=== PATIENT | female | born 1940 | race Caucasian/White ===

== ENCOUNTER 2018-05-21 07:47 | Day surgery (SDC) | payer MEDICARE ==
[2018-05-21] MEDS: PHENYLEPHRINE 2.5% OPHTH SOL 2ML OD (08:42)
[2018-05-21] MEDS: TROPICAMIDE 1% OPHTH SOLN 2ML OD (08:42)
[2018-05-21] MEDS: OFLOXACIN 0.3 % (OCUFLOX) OPTH SOL 5ML OD (08:42)
[2018-05-21] MEDS: PROPARACAINE 0.5% OPHTH SOL 15ML OD (08:43)
[2018-05-21] MEDS ORDERED: fentaNYL 100 MCG/2 ML INJECTION (J3010) As Ordered (09:02)
[2018-05-21] MEDS ORDERED: MIDAZOLAM INJ 2 MG/2 ML VIAL (J2250) As Ordered (09:02)
[2018-05-21] MEDS: POVIDONE-IODINE 5% OPHTH PREP SOL 30ML As Ordered (09:35)
[2018-05-21] MEDS: CEFUROXIME 1MG/0.1ML INTRACAMERAL INJ As Ordered (09:35)
[2018-05-21] MEDS: LIDOCAINE 0.75%/EPINEPHRINE 0.025% IN BSS 1ML SYR INTRACAMERAL (OR ONLY) As Ordered (09:35)
[2018-05-21] MEDS: BALANCED SALT IRRIGATION SOLUTION 500ML BAG (FOR OR EYE MACHINE) As Ordered (09:35)
[2018-05-21] MEDS: DUOVISC (0.50ML VISCOAT/0.55ML PROVISC) OPHTH KIT As Ordered (09:35)
== END 2018-05-21 10:33 | disposition home or self-care (01) ==
LOC: M SDC 07:47
DX: H25.11 Age-related nuclear cataract, right eye (principal); J43.1 Panlobular emphysema; H40.9 Unspecified glaucoma; I12.9 Hypertensive chronic kidney disease with stage 1 through stage 4 chronic kidney disease, or unspecified chronic kidney disease; R73.03 Prediabetes; M12.9 Arthropathy, unspecified; I25.10 Atherosclerotic heart disease of native coronary artery without angina pectoris; E78.00 Pure hypercholesterolemia, unspecified; K21.9 Gastro-esophageal reflux disease without esophagitis; R29.898 Other symptoms and signs involving the musculoskeletal system; M81.0 Age-related osteoporosis without current pathological fracture; F41.9 Anxiety disorder, unspecified; K44.9 Diaphragmatic hernia without obstruction or gangrene; R32 Unspecified urinary incontinence; R80.9 Proteinuria, unspecified; E55.9 Vitamin D deficiency, unspecified; I50.32 Chronic diastolic (congestive) heart failure; N18.3 Chronic kidney disease, stage 3 (moderate); G56.23 Lesion of ulnar nerve, bilateral upper limbs; E66.9 Obesity, unspecified; Z88.0 Allergy status to penicillin; Z88.5 Allergy status to narcotic agent; Z79.899 Other long term (current) drug therapy; Z79.82 Long term (current) use of aspirin; Z87.81 Personal history of (healed) traumatic fracture; Z87.891 Personal history of nicotine dependence
CPT/HCPCS: 66984

== ENCOUNTER 2018-05-28 10:18 | Day surgery (SDC) | payer MEDICARE ==
[~2018-05-28 10:18] MED LIST: ACETAMINOPHEN 325 MG TAB PO; MIDAZOLAM INJ 2 MG/2 ML VIAL (J2250) As Ordered; fentaNYL 100 MCG/2 ML INJECTION (J3010) As Ordered
[2018-05-28] MEDS: PHENYLEPHRINE 2.5% OPHTH SOL 2ML OS (11:30)
[2018-05-28] MEDS: PROPARACAINE 0.5% OPHTH SOL 15ML OS (11:30)
[2018-05-28] MEDS: TROPICAMIDE 1% OPHTH SOLN 2ML OS (11:30)
[2018-05-28] MEDS: OFLOXACIN 0.3 % (OCUFLOX) OPTH SOL 5ML OS (11:30)
[2018-05-28] MEDS: DUOVISC (0.50ML VISCOAT/0.55ML PROVISC) OPHTH KIT As Ordered ×2 (13:18)
[2018-05-28] MEDS: ACETYLCHOLINE OPHTH SOLN 1% 2ML (MIOCHOL-E) As Ordered (13:18)
[2018-05-28] MEDS: CEFUROXIME 1MG/0.1ML INTRACAMERAL INJ As Ordered (13:18)
[2018-05-28] MEDS: LIDOCAINE 0.75%/EPINEPHRINE 0.025% IN BSS 1ML SYR INTRACAMERAL (OR ONLY) As Ordered (13:18)
[2018-05-28] MEDS ORDERED: ONDANSETRON 4MG/2ML VIAL (J2405) IV (14:15)
[2018-05-28] MEDS ORDERED: TRIMETHOBENZAMIDE 300 MG CAP PO (14:15)
[2018-05-28] MEDS ORDERED: ACETAMINOPHEN TAB 650MG DOSE (2X325MG) PO (14:15)
== END 2018-05-28 14:25 | disposition home or self-care (01) ==
LOC: M SDC 10:18
DX: H25.12 Age-related nuclear cataract, left eye (principal); H40.812 Glaucoma with increased episcleral venous pressure, left eye; I25.10 Atherosclerotic heart disease of native coronary artery without angina pectoris; I10 Essential (primary) hypertension; J44.9 Chronic obstructive pulmonary disease, unspecified; K21.9 Gastro-esophageal reflux disease without esophagitis; F41.9 Anxiety disorder, unspecified; Z79.82 Long term (current) use of aspirin; Z79.899 Other long term (current) drug therapy
CPT/HCPCS: 66984

== ENCOUNTER 2019-02-16 15:12 | Inpatient (IN) | payer MEDICARE ==
[~2019-02-16] VITALS: Ht 157.5 cm; Wt 73.0 kg
[~2019-02-16 15:12] MED LIST changes: +ACET1TAB55 PO; -ACETAMINOPHEN 325 MG TAB PO; +ADV250INH INH; +ALBU83IN INH; +ALIVTAB3 PO; +ASPI81TA26 PO; +ATOR40TA75 PO; +BIMA01SOL OU; +BROV15NE INH; +BUDE0.5S6 INH; +CARD120C3 PO; +COLA100C5 PO; +DRIS50003 PO; +DULC10SU2 PR; +ESCI10TA2 PO; +FERR325T3 PO; +FOSA70TA PO; +FURO40TA2 PO; +GABA-1171 PO; +GLIM1TAB PO; +INCR1INH INH; +IPRA2IN INH; +KLOR10TA76 PO; +LISI10TA4 PO; +META0.52 PO; -MIDAZOLAM INJ 2 MG/2 ML VIAL (J2250) As Ordered; +MILK120011 PO; +PEPC1TAB5 PO; +PRED10TA2 PO; -fentaNYL 100 MCG/2 ML INJECTION (J3010) As Ordered
[2019-02-16 16:05] LABS: BASO % 0.3 % (0.0-1.0); EOS # 0.1 10^3/uL (0.0-0.50); EOS % 0.6 % (0.0-3.0); HEMATOCRIT 39.4 % (36.0-47.0); HEMOGLOBIN 11.4 g/dl (12.0-15.5); LYMPH # 1.1 10^3/uL (1.5-4.5); LYMPH % 10.5 % (24.0-44.0); MEAN CORPUSCULAR HEMOGLOBIN 29.7 pg (27.0-33.0); MEAN CORPUSCULAR HGB CONC 28.9 g/dl (32.0-36.5); MEAN CORPUSCULAR VOLUME 102.6 fl (80.0-96.0); MONO # 0.6 10^3/uL (0.0-0.8); MONO % 5.9 % (0.0-5.0); NEUTROPHILS # 8.2 10^3/uL (1.8-7.7); NEUTROPHILS % 82.3 % (36.0-66.0); PLATELET COUNT, AUTOMATED 209 10^3/uL (150-450); RED BLOOD COUNT 3.84 10^6/uL (4.00-5.40)
--- NOTE | 2019-02-16 16:12 | REP ---
Chest two views HISTORY: Cough Comparison: 02/11/2018 Linear density is present in the right lower lobe consistent with scarring. A calcified granuloma is present in the left lower lobe. The cardiac silhouette is enlarged. The heart is normal in size. The pulmonary vasculature is normal in appearance. The bony structure is osteopenic. IMPRESSION: 1. Right lower lobe scarring. 2. Cardiomegaly. Electronically Signed by Geovani Malin MD 02/16/2019 04:04 P
[2019-02-16] MEDS ORDERED: FUROSEMIDE 40 MG/4 ML VIAL (J1940) IV ONE (16:15)
[2019-02-16 16:16] LABS: INR 0.84; PROTHROMBIN TIME 11.6 SECONDS (12.1-14.4)
[2019-02-16] MEDS: IPRATROPIUM 0.5MG/ALBUTEROL 2.5MG INH SOL UD 3ML (DUONEB)(J7620) NEB SCH ×4 (16:16→20:11)
[2019-02-16 16:29] LABS: ABG BASE EXCESS 17.3 (-2.0-2.0); ABG HCO3 45.8 MEQ/L (22.0-26.0); ABG O2 SATURATION 89.3 % (95.0-99.0); ABG PARTIAL PRESSURE O2 54.3 mmHg (75.0-100.0); ABG STANDARD HCO3 41.1 MEQ/L (22.0-26.0); ABG TOTAL CO2 48.2 MEQ/L (23.0-31.0)
[2019-02-16 16:36] LABS: ABG PARTIAL PRESSURE CO2 77.4 mmHg (35.0-45.0)
[2019-02-16 16:51] LABS: ALBUMIN 3.6 GM/DL (3.2-5.2); ALT/SGPT 24 U/L (12-78); BILIRUBIN,DIRECT 0.1 MG/DL (0.0-0.2); BILIRUBIN,TOTAL 0.4 MG/DL (0.2-1.0); BLOOD UREA NITROGEN 25 MG/DL (7-18); CALCIUM LEVEL 8.8 MG/DL (8.8-10.2); CARBON DIOXIDE LEVEL 49 MEQ/L (21-32); CHLORIDE LEVEL 93 MEQ/L (98-107); CPK CREATINE PHOSPHOKINASE 51 U/L (26-192); GLOMERULAR FILTRATION RATE 57.1 (>39); GLUCOSE, FASTING 78 MG/DL (70-100); MB/CK RELATIVE INDEX 6.08 (< OR =4); NT-PRO BNP 3198 PG/ML (<450); POTASSIUM SERUM 4.1 MEQ/L (3.5-5.1); SODIUM LEVEL 141 MEQ/L (136-145); THYROID STIMULATING HORMONE 0.661 uIU/ML (0.358-3.740); TOTAL PROTEIN 6.5 GM/DL (6.4-8.2); TROPONIN I 0.03 NG/ML (< 0.10)
[2019-02-16] MEDS ORDERED: CARD120C3 PO (17:38)
[2019-02-16] MEDS ORDERED: ACET650T15 PO (17:38)
[2019-02-16] MEDS ORDERED: TREL1AER INH (17:39)
[2019-02-16] MEDS ORDERED: ALBUTEROL SULFATE 2.5 MG/0.5 ML INH NEB SOLN NEB PRN (18:45)
--- NOTE | 2019-02-16 19:19 | HPEPDOC ---
General Date of Admission Feb 16, 2019 at 17:48 Chief Complaint The patient is a 78-year-old female admitted with a reason for visit of Acute R espiratory Failure W Hypoxia And Hypercapni. Source: Patient, Family Exam Limitations: Clinical conditions, Other (Patient on BiPAP) History of Present Illness Patient is a 78-year-old female who presents to the hospital with complains of increasing shortness of breath as well as hypoxia. The patient was apparently admitted to [facility] a couple of weeks ago, treated with antibiotics, Lasix and steroids discharged home on Lasix and prednisone. The patient reports she previously finished the antibiotic treatment. At home, the patient was having problems with lower extremity edema. She was seen by her primary care provider on Friday last week and the dose of her furosemide was increased to 80 mg daily. She finished the higher dose of furosemide yesterday. Over the the weekend, the family had noticed that the patient was having problems with shortness of breath, difficulty ambulating, increasing confusion/hallucination. They had advised the patient to come to the ER, however, apparently, the patient refused the same. In addition, it seems the patient had also been started on Flexeril for back spasmsthe patient had been advised to take half to 1 tablet daily as needed. Family reports that the patient took 7 tablets over the weekend. Also, over the weekend, they had noticed that the patient's O2 saturations were as low as in the 40s. The report that they had increased her oxygen from 4 L to 8 L/m. When seen by primary care provider today, the patient was again noted to be hypoxic. Given concerns regarding respirator failure, she was advised to come to the ER. In the ER, she was noticed to be saturating 60% on arrival. She was treated with 40 g IV Lasix as well as Neb treatment and was placed on BiPAP. ABG showed findings consistent with acute on chronic hypoxemic hypercapnic respiratory failure. Admission was requested for further management. The patient denies any associated chest pain with the shortness of breath. She reports she eats a ham sandwich daily. Does report associated lower except the swelling. Slight cough. No associated fevers/chills or sweats. No nausea or vomiting. Tolerating oral intake. Usually uses a walker to ambulate. Denies any new joint pain or skin rashes. Home Medications Scheduled Alendronate Sodium (Fosamax) 70 Mg Tab, 70 MG PO QWEEK, (Reported) SATURDAYS Aspirin (Aspirin EC) 81 Mg Tab, 81 MG PO DAILY, (Reported) Atorvastatin Calcium (Atorvastatin Calcium) 40 Mg Tab, 40 MG PO QHS, (Reported) Diltiazem Hcl (Cardizem Cd) 120 Mg Cap.er.24h, 120 MG PO DAILY, (Reported) Ergocalciferol (Vitamin D2) (Drisdol) 50,000 Unit Cap, 50,000 UNIT PO Q2WK, (Reported) TAKES EVERY OTHER FRIDAY Ferrous Sulfate (Ferrous Sulfate) 325 Mg Tab, 325 MG PO DAILY, (Reported) Fluticasone/Umeclidin/Vilanter (Trelegy Ellipta 100-62.5-25) 1 Each Blst.w.dev, 1 PUFF INH DAILY, (Reported) Furosemide (Furosemide) 40 Mg Tab, 60 MG PO DAILY, (Reported) Lisinopril (Lisinopril) 10 Mg Tab, 10 MG PO DAILY, (Reported) Potassium Chloride (Klor-Con M10) 10 Meq Tabcr, 10 MEQ PO DAILY, (Reported) Scheduled PRN Acetaminophen (Acetaminophen ER) 650 Mg Tablet.er, 650 MG PO Q8H PRN for PAIN, (Reported) Albuterol Sulf (Albuterol Sulfate) 2.5 Mg/3 Ml Nebu, 2.5 MG INH Q4H PRN for SHORTNESS OF BREATH, (Reported) Allergies Coded Allergies: No Known Allergies (Unverified , 05/21/18) Past Medical History Medical History Diastolic congestive heart failure with ejection fraction 60% on echocardiogram from 01/19/18, osteoporosis, chronic hypoxic and hypercarbic respiratory failure on 4 L/m home oxygen secondary to GOLD stage IV emphysema/end-stage COPD, hypertension, depression, left eye cataract and glaucoma, left elbow fracture, previous cardiac catheterization, left pneumothorax in the past, moderate palmar hypertension, vitamin D deficiency, obesity, hypercholesterolemia, chronic kidney disease stage III Surgical History Left eye cataract extraction and glaucoma surgery Family History Sister has atrial fibrillation, mom had COPD and father had [place] Social History Smoked 2 packs per day for 40 years, quit 20 years ago. Denies any alcohol abuse or drug abuse Review of Systems Other systems Negative for 10 systems except as noted under history of present illness Physical Examination General Exam: Positive: Other (awake, alert. On BiPAP. Able to answer questions and follows commands. Cooperative.) Eye Exam: Positive: PERRLA ENT Exam: Positive: Mucous membr. moist/pink Chest Exam: Positive: Other (diminished air entry bilateral lung kennedy. Slight wheeze. No overt crackles.) Heart Exam: Positive: Other (S1, S2 heard, regular rate rhythm. No rubs or gallops. Bilateral lower extremity 1+ pitting edema) Abdomen Exam: Positive: Soft, Other (nontender. No guarding or rigidity.) Extremity Exam: Positive: Edema Skin Exam: Negative: Rash Neuro Exam: Positive: Other (awake, alert, oriented 3. Answering questions appropriately. Moving all 4 extremities.) Psych Exam: Positive: Mental status NL Vital Signs Vital Signs Date Time Temp Pulse Resp B/P (MAP) Pulse Ox O2 Delivery O2 Flow Rate FiO2 02/16/19 17:52 82 14 175/84 (114) NIPPV (BIPAP/CPAP) 98 02/16/19 16:10 4.0 02/16/19 15:13 97.5 88 Laboratory Data Labs 24H Laboratory Tests 2 02/16/19 15:51: Immature Granulocyte % (Auto) 0.4, White Blood Count 10.0, Red Blood Count 3.84L, Hemoglobin 11.4L, Hematocrit 39.4, Mean Corpuscular Volume 102.6H, Mean Corpuscular Hemoglobin 29.7, Mean Corpuscular Hemoglobin Concent 28.9L, Red Cell Distribution Width 14.2, Platelet Count 209, Neutrophils (%) (Auto) 82.3H, Lymphocytes (%) (Auto) 10.5L, Monocytes (%) (Auto) 5.9H, Eosinophils (%) (Auto) 0.6, Basophils (%) (Auto) 0.3, Neutrophils # (Auto) 8.2H, Lymphocytes # (Auto) 1.1L, Monocytes # (Auto) 0.6, Eosinophils # (Auto) 0.1, Basophils # (Auto) 0.0, Nucleated Red Blood Cells % (auto) 0.0, Prothrombin Time 11.6L, Prothromb Time International Ratio 0.84, Anion Gap , Glomerular Filtration Rate 57.1, Calcium Level 8.8, Aspartate Amino Transf (AST/SGOT) 21, Alanine Aminotransferase (ALT/SGPT) 24, Alkaline Phosphatase 53, Total Bilirubin 0.4, Direct Bilirubin 0.1, Total Creatine Kinase 51, Creatine Kinase MB 3.0, Creatine Kinase MB Relative Index 6.08H, Troponin I 0.03, AU-Xgl-R-Type Natriuretic Peptide 3198H, Total Protein 6.5, Albumin 3.6, Albumin/Globulin Ratio 1.24, Thyroid Stimulating Hormone (TSH) 0.661 02/16/19 16:15: Blood Gas Bicarbonate Standard 41.1H, Arterial Blood pH 7.390, Arterial Blood Partial Pressure CO2 77.4*H, Arterial Blood Partial Pressure O2 54.3L, Arterial Blood Total CO2 48.2H, Arterial Blood HCO3 45.8H, Arterial Blood Base Excess 17.3H, Arterial Blood Oxygen Saturation 89.3L CBC/BMP Laboratory Tests 02/16/19 15:51 Red Blood Count 3.84 L, Mean Corpuscular Volume 102.6 H, Mean Corpuscular Hemoglobin 29.7, Mean Corpuscular Hemoglobin Concent 28.9 L, Red Cell Distribution Width 14.2, Neutrophils (%) (Auto) 82.3 H, Lymphocytes (%) (Auto) 10.5 L, Monocytes (%) (Auto) 5.9 H, Eosinophils (%) (Auto) 0.6, Basophils (%) (Auto) 0.3, Neutrophils # (Auto) 8.2 H, Lymphocytes # (Auto) 1.1 L, Monocytes # (Auto) 0.6, Eosinophils # (Auto) 0.1, Basophils # (Auto) 0.0 RAD Interpretation STUDY: CXR (cardiomegaly, right lower lobe scarring) Assessment/Plan Acute on chronic hypoxic hypercapnic respiratory failure: -Suspect secondary to CHF exacerbation as well as component of COPD exacerbation -Diurese with IV Lasix -Bi-Pap -ABG in a.m. -I's and O's, Jason catheter for accurate and critical monitoring of I's and O 's, daily weights, 2 g sodium diet, fluid restriction, echocardiogram, serial troponins -IV Solu-Medrol, duo nebs 4 times a day, when necessary albuterol neb, Pulmicort nebs twice a day -Pulmonary consultcase was discussed with Dr. Mccullough -Echocardiogram Acute and chronic diastolic congestive heart failure: -Management as noted above Acute COPD exacerbation in setting of end-stage/GOLD Stage 4 COPD: -Management as noted above Stage III chronic kidney disease: -Monitor renal function with diuresis Hypertension -Continue lisinopril, patient will be on IV Lasix Weakness: -PT/OT evaluation Back muscle spasms: -Avoid sedating medications -Topical lidocaine patch and scheduled acetaminophen GI/DVT prophylaxis: -PPI, subcutaneous enoxaparin CODE STATUS: -Full code per my discussion with the patient Disposition: -Admit to ICU as an inpatient for further evaluation and management of acute on chronic respiratory failure, acute on chronic CHF exacerbation and COPD exacerbation. Anticipated discharge to home with home health versus [facility] once medically stable Plan / VTE VTE Prophylaxis Ordered?: Yes ANNIE ROSARIO MD Feb 16, 2019 19:05
[2019-02-16 19:30] VITALS: O2SAT 95
[2019-02-16] MEDS: BUDESONIDE 0.5 MG/2 ML INHALATION SUSPENSION INH SCH (20:11)
[2019-02-16] MEDS: methylPREDNISolone INJ 125 MG/2 ML VIAL (J2930) IV SCH (20:15)
[2019-02-16] MEDS: LIDOCAINE 5% (LIDODERM) PATCH TD SCH (20:15)
[2019-02-16] MEDS: **NOTE PATIENT COMMENT** MISC XX SCH (20:32)
[2019-02-16] MEDS: ATORVASTATIN 20 MG TAB PO SCH (21:00)
--- NOTE | 2019-02-16 21:43 | ECGEPIP ---
Stationary ECG Study [facility] - ED Test Date: 2019-02-16 Pat Name: CARMEN CID Department: Room: - Gender: F [employer] Service [employer]: : 1940 Requested By: CRESCENCIO Taylor Order Number: [id number] Reading MD: Lindsey Andre Measurements Intervals [place] Rate: 79 P: 85 VT: 162 QRS: 76 QRSD: 134 T: 29 QT: 344 QTc: 396 Interpretive Statements SINUS RHYTHM WITH OCCASIONAL SUPRAVENTRICULAR PREMATURE COMPLEXES RIGHT BUNDLE BRANCH BLOCK MODERATE T-WAVE ABNORMALITY, CONSIDER LATERAL ISCHEMIA Electronically Signed On 02-16-2019 21:42:56 EDT by Lindsey Andre
[2019-02-16 21:55] LABS: ABG BASE EXCESS 17.5 (-2.0-2.0); ABG HCO3 43.7 MEQ/L (22.0-26.0); ABG O2 SATURATION 95.3 % (95.0-99.0); ABG PARTIAL PRESSURE CO2 59.7 mmHg (35.0-45.0); ABG PARTIAL PRESSURE O2 68.7 mmHg (75.0-100.0); ABG STANDARD HCO3 41.5 MEQ/L (22.0-26.0); ABG TOTAL CO2 45.5 MEQ/L (23.0-31.0); ABG pH (ARTERIAL) 7.482 UNITS (7.350-7.450)
[2019-02-16 22:00] VITALS: BP 141/73
[2019-02-16] MEDS: ACETAMINOPHEN 500 MG TAB PO SCH (23:06)
[2019-02-17] VITALS (11 sets, daily range): BP systolic 132–179; BP diastolic 67–80; O2SAT 93–94
[2019-02-17] MEDS: methylPREDNISolone INJ 125 MG/2 ML VIAL (J2930) IV SCH ×3 (02:00→19:58)
[2019-02-17 03:10] LABS: BASO % 0.1 % (0.0-1.0); HEMATOCRIT 36.1 % (36.0-47.0); HEMOGLOBIN 10.9 g/dl (12.0-15.5); LYMPH # 0.4 10^3/uL (1.5-4.5); LYMPH % 5.9 % (24.0-44.0); MEAN CORPUSCULAR HGB CONC 30.2 g/dl (32.0-36.5); MEAN CORPUSCULAR VOLUME 99.4 fl (80.0-96.0); MONO % 0.4 % (0.0-5.0); NEUTROPHILS % 93.3 % (36.0-66.0); PLATELET COUNT, AUTOMATED 197 10^3/uL (150-450); RED BLOOD COUNT 3.63 10^6/uL (4.00-5.40); WHITE BLOOD COUNT 7.5 10^3/uL (4.0-10.0)
[2019-02-17 03:31] LABS: ALBUMIN 3.3 GM/DL (3.2-5.2); ALT/SGPT 22 U/L (12-78); BILIRUBIN,TOTAL 0.5 MG/DL (0.2-1.0); BLOOD UREA NITROGEN 23 MG/DL (7-18); CALCIUM LEVEL 8.4 MG/DL (8.8-10.2); CARBON DIOXIDE LEVEL 44 MEQ/L (21-32); CHLORIDE LEVEL 93 MEQ/L (98-107); CREATININE FOR GFR 0.93 MG/DL (0.55-1.30); GLOMERULAR FILTRATION RATE > 60.0 (>39); GLUCOSE, FASTING 134 MG/DL (70-100); MAGNESIUM LEVEL 2.2 MG/DL (1.8-2.4); NT-PRO BNP 2289 PG/ML (<450); PHOSPHORUS LEVEL 2.9 MG/DL (2.5-4.9); POTASSIUM SERUM 4.2 MEQ/L (3.5-5.1); SODIUM LEVEL 142 MEQ/L (136-145); TOTAL PROTEIN 6.2 GM/DL (6.4-8.2)
[2019-02-17 05:34] LABS: ABG BASE EXCESS 16.3 (-2.0-2.0); ABG HCO3 43.8 MEQ/L (22.0-26.0); ABG O2 SATURATION 94.6 % (95.0-99.0); ABG STANDARD HCO3 40.1 MEQ/L (22.0-26.0); ABG TOTAL CO2 45.9 MEQ/L (23.0-31.0); ABG pH (ARTERIAL) 7.411 UNITS (7.350-7.450)
[2019-02-17 05:36] LABS: ABG PARTIAL PRESSURE CO2 70.5 mmHg (35.0-45.0)
[2019-02-17] MEDS: ACETAMINOPHEN 500 MG TAB PO SCH ×3 (06:00→18:19)
[2019-02-17] MEDS: BUDESONIDE 0.5 MG/2 ML INHALATION SUSPENSION INH SCH ×2 (07:36→20:07)
[2019-02-17] MEDS: IPRATROPIUM 0.5MG/ALBUTEROL 2.5MG INH SOL UD 3ML (DUONEB)(J7620) NEB SCH ×4 (07:37→20:07)
--- NOTE | 2019-02-17 07:37 | REP ---
Portable chest, 06:38 a.m., single AP semi upright view: Comparison is 01/25/2018. The there is a small zone of discoid atelectasis inferolaterally in the right lung. There is a nodular density in the right upper lobe, unchanged. There is a nodular density in the left lower lobe, unchanged. There is chronic cardiomegaly, unchanged. There is an old fracture of the right humeral head and neck. Electronically Signed by Antoine England MD 02/17/2019 07:29 A
[2019-02-17] MEDS: LISINOPRIL 10 MG TAB PO SCH (08:26)
[2019-02-17] MEDS: POTASSIUM CHLORIDE 10 MEQ SR TABLET PO SCH (08:26)
[2019-02-17] MEDS: FERROUS SULFATE 325MG TAB PO SCH (08:26)
[2019-02-17] MEDS: ASPIRIN 81 MG ENTERIC TAB PO SCH (08:29)
[2019-02-17] MEDS: FUROSEMIDE 40 MG/4 ML VIAL (J1940) IV SCH (08:29)
[2019-02-17] MEDS: LIDOCAINE 5% (LIDODERM) PATCH TD SCH (08:29)
[2019-02-17] MEDS: ENOXAPARIN 40 MG/0.4 ML SYRINGE (J1650) SC SCH (08:31)
[2019-02-17] MEDS ORDERED: PANTOPRAZOLE 40MG INJ (PROTONIX) (C9113) IV SCH (09:00)
--- NOTE | 2019-02-17 09:48 | IPNPDOC ---
Date Seen The patient was seen on 02/17/19. Progress Note SUBJECTIVE: Patient breathing better this morning, she tells me she is not short of breath she tells me that her breathing feels almost back to normal she still has some back pain and muscle spasms with Lidoderm patches are helping her OBJECTIVE PHYSICAL EXAMINATION: VITAL SIGNS: Please see below. GENERAL: Frail elderly woman sitting up in bed wearing a facemask she does not appear to be in any acute distress speaking in complete sentences she is awake alert oriented 3, no respiratory accessory muscle use HEENT: Cranial nerves II through XII are grossly intact difficult to assess for any elevation CVP secondary to body habitus CARDIOVASCULAR: S1-S2 she is not significantly tachycardic at time of my exam. RESPIRATORY: Scattered bibasilar Rales prolonged expiratory phase otherwise fairly good air movement. ABDOMINAL: Obese bowel sounds present abdomen soft and nontender EXTREMITIES: Trace edema bilaterally LABORATORY DATA, IMAGING STUDIES, MICROBIOLOGY: Please see below. Echocardiogram: Ordered. DVT prophylaxis ordered?: Lovenox ASSESSMENT AND PLAN: This is a 78-year-old female with acute on chronic combined hypercarbic hypoxic respiratory failure. PROBLEMS: 1. Acute on chronic combined hypercarbic hypoxic respiratory failure: [place] to be related to decompensation of congestive heart failure as well as an element of COPD exacerbation. She does appear to be significantly improved at this time I suspect to be weaned back to her baseline O2 by suspicion is that this is more likely related to pulmonary edema.Appears to be much improved from yesterday at this time. COntinue with diuresis as well as BP control with lisinopril and diltiazem. In regards to her COPD and her chronic respiratory failure requiring 4 L at her baseline we'll continue with DuoNeb's IV Solu-Medrol Pulmicort. Pulmonary consult was placed yesterday with further recommendations them she does not appear to be requiring BiPAP at this time. No evidence of any active pneumonia or infectious etiology. I'll discontinue her Jason catheter and follow-up her echocardiogram 2. Acute on chronic diastolic congestive heart failure: As outlined above on her I's and O's daily weights continue with diuresis she does appear to be approaching U bulimia but not quite there yet. 3. End-stage COPD: Management as above further admonitions from pulmonary. 4. Back spasms: Does appear doing well with the Lidoderm patch will hold off any muscle relaxants for the time being until her she is close to her baseline so that she was recently started on new medication the name of which she cannot rec all 5. Hypertension: As outlined above continue with diltiazem and lisinopril 6. Chronic kidney disease: Stable monitor while undergoing diuresis DISPOSITION: Pending pulmonary consult, echo, PTOT optimization of her respiratory status long-term prognosis appears to be quite poor to me. VS, I&O, 24H, Fishbone Vital Signs/I&O Vital Signs Date Time Temp Pulse Resp B/P (MAP) Pulse Ox O2 Delivery O2 Flow Rate FiO2 02/17/19 08:28 116 02/17/19 08:26 151/79 02/17/19 07:37 10 02/17/19 04:00 40 02/17/19 04:00 97.3 97 5.0 02/16/19 21:45 NIPPV (BIPAP/CPAP) I&O- Last 24 Hours up to 6 AM 02/17/19 06:00 Intake Total 200 ml Output Total 1200 ml Balance -1000 ml Laboratory Data 24H LABS Laboratory Tests 2 02/16/19 15:51: Immature Granulocyte % (Auto) 0.4, White Blood Count 10.0, Red Blood Count 3.8 4L, Hemoglobin 11.4L, Hematocrit 39.4, Mean Corpuscular Volume 102.6H, Mean Corpuscular Hemoglobin 29.7, Mean Corpuscular Hemoglobin Concent 28.9L, Red Cell Distribution Width 14.2, Platelet Count 209, Neutrophils (%) (Auto) 82.3H, Lymphocytes (%) (Auto) 10.5L, Monocytes (%) (Auto) 5.9H, Eosinophils (%) (Auto) 0.6, Basophils (%) (Auto) 0.3, Neutrophils # (Auto) 8.2H, Lymphocytes # (Auto) 1.1L, Monocytes # (Auto) 0.6, Eosinophils # (Auto) 0.1, Basophils # (Auto) 0.0, Nucleated Red Blood Cells % (auto) 0.0, Prothrombin Time 11.6L, Prothromb Time International Ratio 0.84, Anion Gap , Glomerular Filtration Rate 57.1, Calcium Level 8.8, Aspartate Amino Transf (AST/SGOT) 21, Alanine Aminotransferase (ALT/SGPT) 24, Alkaline Phosphatase 53, Total Bilirubin 0.4, Direct Bilirubin 0.1, Total Creatine Kinase 51, Creatine Kinase MB 3.0, Creatine Kinase MB Relative Index 6.08H, Troponin I 0.03, II-Qqm-Z-Type Natriuretic Peptide 3198H, Total Protein 6.5, Albumin 3.6, Albumin/Globulin Ratio 1.24, Thyroid Stimulating Hormone (TSH) 0.661 02/16/19 16:15: Blood Gas Bicarbonate Standard 41.1H, Arterial Blood pH 7.390, Arterial Blood Partial Pressure CO2 77.4*H, Arterial Blood Partial Pressure O2 54.3L, Arterial Blood Total CO2 48.2H, Arterial Blood HCO3 45.8H, Arterial Blood Base Excess 17.3H, Arterial Blood Oxygen Saturation 89.3L 02/16/19 21:19: Troponin I 0.03 02/16/19 21:48: Blood Gas Bicarbonate Standard 41.5H, Arterial Blood pH 7.482H, Arterial Blood Partial Pressure CO2 59.7H, Arterial Blood Partial Pressure O2 68.7L, Arterial Blood Total CO2 45.5H, Arterial Blood HCO3 43.7H, Arterial Blood Base Excess 17.5H, Arterial Blood Oxygen Saturation 95.3 02/17/19 02:59: Immature Granulocyte % (Auto) 0.3, White Blood Count 7.5, Red Blood Count 3.63L, Hemoglobin 10.9L, Hematocrit 36.1, Mean Corpuscular Volume 99.4H, Mean Corpuscular Hemoglobin 30.0, Mean Corpuscular Hemoglobin Concent 30.2L, Red Cell Distribution Width 14.1, Platelet Count 197, Neutrophils (%) (Auto) 93.3H, Lymphocytes (%) (Auto) 5.9L, Monocytes (%) (Auto) 0.4, Eosinophils (%) (Auto) 0.0, Basophils (%) (Auto) 0.1, Neutrophils # (Auto) 7.0, Lymphocytes # (Auto) 0.4L, Monocytes # (Auto) 0.0, Eosinophils # (Auto) 0.0, Basophils # (Auto) 0.0, Nucleated Red Blood Cells % (auto) 0.0, Anion Gap 5L, Glomerular Filtration Rate > 60.0, Blood Urea Nitrogen 23H, Creatinine 0.93, Sodium Level 142, Potassium Level 4.2, Chloride Level 93L, Carbon Dioxide Level 44H, Calcium Level 8.4L, Phosphorus Level 2.9, Aspartate Amino Transf (AST/SGOT) 19, Alanine Aminotransferase (ALT/SGPT) 22, Alkaline Phosphatase 50, Total Bilirubin 0.5, Total Protein 6.2L, Albumin 3.3, Magnesium Level 2.2, Troponin I 0.03, CR-Hme-S-Type Natriuretic Peptide 2289H, Albumin/Globulin Ratio 1.14 02/17/19 05:10: Blood Gas Bicarbonate Standard 40.1H, Arterial Blood pH 7.411, Arterial Blood Partial Pressure CO2 70.5*H, Arterial Blood Partial Pressure O2 71.0L, Arterial Blood Total CO2 45.9H, Arterial Blood HCO3 43.8H, Arterial Blood Base Excess 16 .3H, Arterial Blood Oxygen Saturation 94.6L CBC/BMP Laboratory Tests 02/16/19 15:51 Red Blood Count 3.84 L, Mean Corpuscular Volume 102.6 H, Mean Corpuscular Hemoglobin 29.7, Mean Corpuscular Hemoglobin Concent 28.9 L, Red Cell Distribution Width 14.2, Neutrophils (%) (Auto) 82.3 H, Lymphocytes (%) (Auto) 10.5 L, Monocytes (%) (Auto) 5.9 H, Eosinophils (%) (Auto) 0.6, Basophils (%) (Auto) 0.3, Neutrophils # (Auto) 8.2 H, Lymphocytes # (Auto) 1.1 L, Monocytes # (Auto) 0.6, Eosinophils # (Auto) 0.1, Basophils # (Auto) 0.0 02/17/19 02:59 Red Blood Count 3.63 L, Mean Corpuscular Volume 99.4 H, Mean Corpuscular Hemoglobin 30.0, Mean Corpuscular Hemoglobin Concent 30.2 L, Red Cell Distribution Width 14.1, Neutrophils (%) (Auto) 93.3 H, Lymphocytes (%) (Auto) 5.9 L, Monocytes (%) (Auto) 0.4, Eosinophils (%) (Auto) 0.0, Basophils (%) (Auto) 0.1, Neutrophils # (Auto) 7.0, Lymphocytes # (Auto) 0.4 L, Monocytes # (Auto) 0.0, Eosinophils # (Auto) 0.0, Basophils # (Auto) 0.0, Calcium Level 8.4 L, Phosphorus Level 2.9, Aspartate Amino Transf (AST/SGOT) 19, Alanine Aminotransferase (ALT/SGPT) 22, Alkaline Phosphatase 50, Total Bilirubin 0.5, Total Protein 6.2 L, Albumin 3.3 SAL DALAL MD Feb 17, 2019 09:48
--- NOTE | 2019-02-17 10:00 | IPNPDOC ---
Subjective Date Seen The patient was seen on 02/17/19. Subjective Chief Complaint/HPI The patient is a 78-year-old female with a history of advanced COPD on 4 L/m, oxygen as well as history of congestive heart failure and dietary noncompliance who presented to the ER after being sent over from her primary care provider's office for concerns regarding hypoxia, shortness of breath, weakness, confusion found to be in acute on chronic hypoxic hypercapnic respiratory failure initially requiring BiPAP therapy. Events since last encounter Overnight, the patient was able to calm off the BiPAP. She is on nasal cannula this morning. She reports her shortness of breath has improved although she is still a little short of breath with activity. Still feels a little weak. Denies any chest pain or coughing. No nausea or vomiting. Denies any dizziness or lightheadedness. No abdominal pain. Had 2 bowel movements this morning. Has a Jason catheter in place and has been draining well. Denies any other overnight complaints. Objective Physical Examination General Exam: Positive: Alert, Cooperative, No Acute Distress Eye Exam: Positive: PERRLA ENT Exam: Positive: Mucous membr. moist/pink Chest Exam: Positive: Diminished; Negative: Rales, Rhonchi, Wheezing Heart Exam: Positive: Tachycardic, Normal S1, Normal S2 Abdomen Exam: Positive: Soft; Negative: Tenderness Extremity Exam: Positive: Edema (1+, 11 improved from yesterday) Skin Exam: Negative: Rash Neuro Exam: Positive: Other (awake, alert, oriented 3 - able to identify her daughter at bedside although she could not tell me the name of the president. Answering questions appropriately. Moving all 4 extremities.) Psych Exam: Positive: Mental status NL RAD Interpretation STUDY: CXR Rad Actions: Report Reviewed, Other Rad Comments: (chest x-ray was personally reviewedright lower lobe atelectasis unchanged from yesterday. No effusion or infiltrates otherwise. Unchanged from yesterday.) Assessment /Plan Assessment Acute on chronic hypoxic hypercapnic respiratory failure: -Suspect secondary to CHF exacerbation as well as component of COPD exacerbation -Ct to diurese with IV Lasix -Off Bi-Pap - now on NC -ABG reviewed -DC Jason catheter - Purewick in stead for accurate I's and O's. Ct daily weights, 2 g sodium diet, fluid restriction. Echocardiogram - pending. Serial troponins were negative -IV Solu-Medrol - decreased to BID, Ct duo nebs 4 times a day, prn albuterol neb, Pulmicort nebs twice a day -Case was discussed with Dr. Mccullough - she will be transferred out of ICU today to med/surg with telemetry Acute and chronic diastolic congestive heart failure: -Management as noted above Acute COPD exacerbation in setting of end-stage/GOLD Stage 4 COPD: -Management as noted above Stage III chronic kidney disease: -Monitor renal function with diuresis- stable as far Hypertension -Continue lisinopril, IV Lasix -Controlled Weakness: -PT/OT evaluation Back muscle spasms: -Avoid sedating medications -Continue Topical lidocaine patch and scheduled acetaminophen GI/DVT prophylaxis: -PPI, subcutaneous enoxaparin Disposition: Transfer to med/surg floor with telemetry. PT/OT evaluation to determine eventual disposition. Anticipate possible discharge over the next 48-72 hours. Plan/VTE VTE Prophylaxis Ordered?: Yes VS, I&O, 24H, Fishbone Vital Signs/I&O Vital Signs Date Time Temp Pulse Resp B/P (MAP) Pulse Ox O2 Delivery O2 Flow Rate FiO2 02/17/19 08:28 116 02/17/19 08:26 151/79 02/17/19 07:37 10 02/17/19 04:00 40 02/17/19 04:00 97.3 97 5.0 02/16/19 21:45 NIPPV (BIPAP/CPAP) I&O- Last 24 Hours up to 6 AM 02/17/19 06:00 Intake Total 200 ml Output Total 1200 ml Balance -1000 ml Laboratory Data 24H LABS Laboratory Tests 2 02/16/19 15:51: Immature Granulocyte % (Auto) 0.4, White Blood Count 10.0, Red Blood Count 3.84L, Hemoglobin 11.4L, Hematocrit 39.4, Mean Corpuscular Volume 102.6H, Mean Corpuscular Hemoglobin 29.7, Mean Corpuscular Hemoglobin Concent 28.9L, Red Cell Distribution Width 14.2, Platelet Count 209, Neutrophils (%) (Auto) 82.3H, Lymphocytes (%) (Auto) 10.5L, Monocytes (%) (Auto) 5.9H, Eosinophils (%) (Auto) 0.6, Basophils (%) (Auto) 0.3, Neutrophils # (Auto) 8.2H, Lymphocytes # (Auto) 1.1L, Monocytes # (Auto) 0.6, Eosinophils # (Auto) 0.1, Basophils # (Auto) 0.0, Nucleated Red Blood Cells % (auto) 0.0, Prothrombin Time 11.6L, Prothromb Time International Ratio 0.84, Anion Gap , Glomerular Filtration Rate 57.1, Calcium Level 8.8, Aspartate Amino Transf (AST/SGOT) 21, Alanine Aminotransferase (ALT/SGPT) 24, Alkaline Phosphatase 53, Total Bilirubin 0.4, Direct Bilirubin 0.1, Total Creatine Kinase 51, Creatine Kinase MB 3.0, Creatine Kinase MB Relative Index 6.08H, Troponin I 0.03, CG-Ade-U-Type Natriuretic Peptide 3198H, Total Protein 6.5, Albumin 3.6, Albumin/Globulin Ratio 1.24, Thyroid Stimulating Hormone (TSH) 0.661 02/16/19 16:15: Blood Gas Bicarbonate Standard 41.1H, Arterial Blood pH 7.390, Arterial Blood Partial Pressure CO2 77.4*H, Arterial Blood Partial Pressure O2 54.3L, Arterial Blood Total CO2 48.2H, Arterial Blood HCO3 45.8H, Arterial Blood Base Excess 17.3H, Arterial Blood Oxygen Saturation 89.3L 02/16/19 21:19: Troponin I 0.03 02/16/19 21:48: Blood Gas Bicarbonate Standard 41.5H, Arterial Blood pH 7.482H, Arterial Blood Partial Pressure CO2 59.7H, Arterial Blood Partial Pressure O2 68.7L, Arterial Blood Total CO2 45.5H, Arterial Blood HCO3 43.7H, Arterial Blood Base Excess 17.5H, Arterial Blood Oxygen Saturation 95.3 02/17/19 02:59: Immature Granulocyte % (Auto) 0.3, White Blood Count 7.5, Red Blood Count 3.63L, Hemoglobin 10.9L, Hematocrit 36.1, Mean Corpuscular Volume 99.4H, Mean Corpuscu lar Hemoglobin 30.0, Mean Corpuscular Hemoglobin Concent 30.2L, Red Cell Distribution Width 14.1, Platelet Count 197, Neutrophils (%) (Auto) 93.3H, Lymphocytes (%) (Auto) 5.9L, Monocytes (%) (Auto) 0.4, Eosinophils (%) (Auto) 0.0, Basophils (%) (Auto) 0.1, Neutrophils # (Auto) 7.0, Lymphocytes # (Auto) 0.4L, Monocytes # (Auto) 0.0, Eosinophils # (Auto) 0.0, Basophils # (Auto) 0.0, Nucleated Red Blood Cells % (auto) 0.0, Anion Gap 5L, Glomerular Filtration Rate > 60.0, Blood Urea Nitrogen 23H, Creatinine 0.93, Sodium Level 142, Potassium Level 4.2, Chloride Level 93L, Carbon Dioxide Level 44H, Calcium Level 8.4L, Phosphorus Level 2.9, Aspartate Amino Transf (AST/SGOT) 19, Alanine Aminotransfe rase (ALT/SGPT) 22, Alkaline Phosphatase 50, Total Bilirubin 0.5, Total Protein 6.2L, Albumin 3.3, Magnesium Level 2.2, Troponin I 0.03, LN-Kvf-[id number]-Type Natriuretic Peptide 2289H, Albumin/Globulin Ratio 1.14 02/17/19 05:10: Blood Gas Bicarbonate Standard 40.1H, Arterial Blood pH 7.411, Arterial Blood Partial Pressure CO2 70.5*H, Arterial Blood Partial Pressure O2 71.0L, Arterial Blood Total CO2 45.9H, Arterial Blood HCO3 43.8H, Arterial Blood Base Excess 16.3H, Arterial Blood Oxygen Saturation 94.6L CBC/BMP Laboratory Tests 02/16/19 15:51 Red Blood Count 3.84 L, Mean Corpuscular Volume 102.6 H, Mean Corpuscular Hemoglobin 29.7, Mean Corpuscular Hemoglobin Concent 28.9 L, Red Cell Distribution Width 14.2, Neutrophils (%) (Auto) 82.3 H, Lymphocytes (%) (Auto) 10.5 L, Monocytes (%) (Auto) 5.9 H, Eosinophils (%) (Auto) 0.6, Basophils (%) (Auto) 0.3, Neutrophils # (Auto) 8.2 H, Lymphocytes # (Auto) 1.1 L, Monocytes # (Auto) 0.6, Eosinophils # (Auto) 0.1, Basophils # (Auto) 0.0 02/17/19 02:59 Red Blood Count 3.63 L, Mean Corpuscular Volume 99.4 H, Mean Corpuscular Hemoglobin 30.0, Mean Corpuscular Hemoglobin Concent 30.2 L, Red Cell Distribution Width 14.1, Neutrophils (%) (Auto) 93.3 H, Lymphocytes (%) (Auto) 5.9 L, Monocytes (%) (Auto) 0.4, Eosinophils (%) (Auto) 0.0, Basophils (%) (Auto) 0.1, Neutrophils # (Auto) 7.0, Lymphocytes # (Auto) 0.4 L, Monocytes # (Auto) 0.0, Eosinophils # (Auto) 0.0, Basophils # (Auto) 0.0, Calcium Level 8.4 L, Phosphorus Level 2.9, Aspartate Amino Transf (AST/SGOT) 19, Alanine Aminotra nsferase (ALT/SGPT) 22, Alkaline Phosphatase 50, Total Bilirubin 0.5, Total Protein 6.2 L, Albumin 3.3 ANNIE ROSARIO MD Feb 17, 2019 10:00
[2019-02-17 15:01] LABS: ABG BASE EXCESS 16.4 (-2.0-2.0); ABG HCO3 42.3 MEQ/L (22.0-26.0); ABG PARTIAL PRESSURE CO2 57.3 mmHg (35.0-45.0); ABG TOTAL CO2 44.1 MEQ/L (23.0-31.0); ABG pH (ARTERIAL) 7.486 UNITS (7.350-7.450)
[2019-02-17 15:06] LABS: ABG PARTIAL PRESSURE O2 45.8 mmHg (75.0-100.0)
[2019-02-17 17:54] LABS: ABG BASE EXCESS 21.1 (-2.0-2.0); ABG HCO3 49.3 MEQ/L (22.0-26.0); ABG O2 SATURATION 94.8 % (95.0-99.0); ABG PARTIAL PRESSURE O2 71.1 mmHg (75.0-100.0); ABG STANDARD HCO3 45.5 MEQ/L (22.0-26.0); ABG TOTAL CO2 51.5 MEQ/L (23.0-31.0); ABG pH (ARTERIAL) 7.437 UNITS (7.350-7.450)
[2019-02-17 17:55] LABS: ABG PARTIAL PRESSURE CO2 74.7 mmHg (35.0-45.0)
[2019-02-17] MEDS: ATORVASTATIN 20 MG TAB PO SCH (19:58)
[2019-02-17] MEDS: **NOTE PATIENT COMMENT** MISC XX SCH (21:00)
[2019-02-18] VITALS (17 sets, daily range): BP systolic 130–170; BP diastolic 61–104; O2SAT 93
[2019-02-18] MEDS: ACETAMINOPHEN 500 MG TAB PO SCH
[2019-02-18 05:07] LABS: HEMATOCRIT 35.3 % (36.0-47.0); LYMPH # 0.6 10^3/uL (1.5-4.5); LYMPH % 6.7 % (24.0-44.0); MEAN CORPUSCULAR HGB CONC 31.2 g/dl (32.0-36.5); MEAN CORPUSCULAR VOLUME 96.2 fl (80.0-96.0); MONO # 0.3 10^3/uL (0.0-0.8); MONO % 3.6 % (0.0-5.0); NEUTROPHILS # 8.5 10^3/uL (1.8-7.7); NEUTROPHILS % 89.4 % (36.0-66.0); PLATELET COUNT, AUTOMATED 239 10^3/uL (150-450); RED BLOOD COUNT 3.67 10^6/uL (4.00-5.40); WHITE BLOOD COUNT 9.6 10^3/uL (4.0-10.0)
[2019-02-18 05:26] LABS: ABG BASE EXCESS 15.6 (-2.0-2.0); ABG HCO3 42.3 MEQ/L (22.0-26.0); ABG O2 SATURATION 92.9 % (95.0-99.0); ABG PARTIAL PRESSURE O2 67.5 mmHg (75.0-100.0); ABG STANDARD HCO3 39.4 MEQ/L (22.0-26.0); ABG TOTAL CO2 44.2 MEQ/L (23.0-31.0); ABG pH (ARTERIAL) 7.446 UNITS (7.350-7.450)
[2019-02-18 05:28] LABS: ABG PARTIAL PRESSURE CO2 62.8 mmHg (35.0-45.0)
[2019-02-18 05:44] LABS: CALCIUM LEVEL 8.9 MG/DL (8.8-10.2); CREATININE FOR GFR 1.07 MG/DL (0.55-1.30); GLOMERULAR FILTRATION RATE 52.8 (>39); MAGNESIUM LEVEL 2.5 MG/DL (1.8-2.4); PHOSPHORUS LEVEL 2.7 MG/DL (2.5-4.9); POTASSIUM SERUM 3.8 MEQ/L (3.5-5.1)
[2019-02-18] MEDS: IPRATROPIUM 0.5MG/ALBUTEROL 2.5MG INH SOL UD 3ML (DUONEB)(J7620) NEB SCH ×4 (07:25→19:37)
[2019-02-18] MEDS: BUDESONIDE 0.5 MG/2 ML INHALATION SUSPENSION INH SCH ×2 (07:25→19:37)
--- NOTE | 2019-02-18 08:13 | REPVR ---
EXAM: CT Head Without Contrast EXAM DATE/TIME: 02/18/2019 6:35 AM CLINICAL HISTORY: 78 years old, female; Signs and symptoms; Other: Increased confusion; Additional info: Change in condition /increased confusion TECHNIQUE: Imaging protocol: Axial computed tomography images of the head/brain without contrast. Radiation optimization: All CT scans at this facility use at least one of these dose optimization techniques: automated exposure control; mA and/or kV adjustment per patient size (includes targeted exams where dose is matched to clinical indication); or iterative reconstruction. COMPARISON: No relevant prior studies available. FINDINGS: Brain: Low attenuating white matter changes suggesting microvascular ischemia on a chronic basis. Chronic lacunar infarction medial right basal ganglia near the junction of the internal capsule. Intracranial vessel calcification. No intracranial hemorrhage. The Ventricles: Normal. No ventriculomegaly. Bones/joints: Areas of lucency within the calvarium likely benign and variant in origin. Sinuses: Visualized sinuses are unremarkable. No acute sinusitis. Mastoid air cells: Visualized mastoid air cells are unremarkable. No mastoid effusion. Soft tissues: Unremarkable. Other findings: Hemispheric volume loss. IMPRESSION: 1. Hemispheric volume loss. 2. White matter changes suggestive of micro-vessel ischemia on a chronic basis. Electronically signed by: Karen Mcnally On 02/18/2019 08:13:02 AM
[2019-02-18] MEDS: ASPIRIN 81 MG ENTERIC TAB PO SCH (09:01)
[2019-02-18] MEDS: FERROUS SULFATE 325MG TAB PO SCH (09:01)
[2019-02-18] MEDS: PANTOPRAZOLE 40MG TAB (PROTONIX) PO SCH (09:01)
[2019-02-18] MEDS: POTASSIUM CHLORIDE 10 MEQ SR TABLET PO SCH (09:01)
[2019-02-18] MEDS: LISINOPRIL 10 MG TAB PO SCH (09:02)
[2019-02-18] MEDS: FUROSEMIDE 40 MG/4 ML VIAL (J1940) IV SCH (09:02)
[2019-02-18] MEDS: methylPREDNISolone INJ 125 MG/2 ML VIAL (J2930) IV SCH (09:03)
[2019-02-18] MEDS: LIDOCAINE 5% (LIDODERM) PATCH TD SCH (09:04)
[2019-02-18] MEDS: ENOXAPARIN 40 MG/0.4 ML SYRINGE (J1650) SC SCH (09:04)
--- NOTE | 2019-02-18 13:16 | IPNPDOC ---
Date Seen The patient was seen on 02/18/19. Progress Note SUBJECTIVE: Patient is oriented to person but not place or situation she states she is at school undergoing testing. She doesn't need that her breathing is good and she has no pain at this time and otherwise doesn't answer questions and follow commands she is accompanied by her daughter and son-in-law OBJECTIVE PHYSICAL EXAMINATION: VITAL SIGNS: Please see below. GENERAL: Frail elderly woman lying in bed wearing a face mask she does not appear to be in any acute distress HEENT: Cranial nerves II through XII are grossly intact difficult to assess for any elevation CVP secondary to body habitus CARDIOVASCULAR: S1-S2 she is tachycardic at time of my exam. RESPIRATORY: Scattered bibasilar Rales prolonged expiratory phase otherwise fairly good air movement. ABDOMINAL: Obese bowel sounds present abdomen soft and nontender EXTREMITIES: Trace edema bilaterally LABORATORY DATA, IMAGING STUDIES, MICROBIOLOGY: Please see below. 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 PROBLEMS: 1. Acute on chronic combined hypercarbic hypoxic respiratory failure: [place] to be related to decompensation of congestive heart failure as well as an element of COPD exacerbation. She was briefly transition out of the medical intensive care unit yesterday but it almost immediately and return for hypoxia pulmonary help was greatly appreciated with tepid wean her steroids and continuing with diuresis. She is still significantly hypoxic and did address goals of care with the patient's daughter as the patient herself is disoriented at this time she reiterates that she would like all interventions taken as far as possible to care for her mother. I did inform her that her prognosis is currently guarded we'll make every effort to improve her respiratory status over her baseline is quite poor we may not be able to get her there and follow-up her echocardiogram. 2. Acute on chronic diastolic congestive heart failure: As outlined above on her I's and O's daily weights continue with diuresis she does appear to be approaching euvolemia. 3. End-stage COPD: Management as above 4. Back spasms: Does appear doing well with the Lidoderm patch will hold off any muscle relaxants for the time being 5. Hypertension: As outlined above continue with diltiazem and lisinopril 6. Chronic kidney disease: Stable monitor while undergoing diuresis DISPOSITION: Prognosis guarded VS, I&O, 24H, Fishbone Vital Signs/I&O Vital Signs Date Time Temp Pulse Resp B/P (MAP) Pulse Ox O2 Delivery O2 Flow Rate FiO2 02/18/19 12:00 98.9 87 24 154/95 (114) 93 10.0 40 02/17/19 18:13 Aerosol Mask I&O- Last 24 Hours up to 6 AM 02/18/19 06:00 Intake Total 400 ml Output Total 705 ml Balance -305 ml Laboratory Data 24H LABS Laboratory Tests 2 02/17/19 14:51: Blood Gas Bicarbonate Standard 40.0H, Arterial Blood pH 7.486H, Arterial Blood Partial Pressure CO2 57.3H, Arterial Blood Partial Pressure O2 45.8*L, Arterial Blood Total CO2 44.1H, Arterial Blood HCO3 42.3H, Arterial Blood Base Excess 16.4H, Arterial Blood Oxygen Saturation 83.0L 02/17/19 17:51: Blood Gas Bicarbonate Standard 45.5H, Arterial Blood pH 7.437, Arterial Blood Partial Pressure CO2 74.7*H, Arterial Blood Partial Pressure O2 71.1L, Arterial Blood Total CO2 51.5H, Arterial Blood HCO3 49.3H, Arterial Blood Base Excess 21.1H, Arterial Blood Oxygen Saturation 94.8L 02/18/19 02:46: Bedside Glucose (Misc Panel) 186H 02/18/19 04:39: Immature Granulocyte % (Auto) 0.3, White Blood Count 9.6, Red Blood Count 3.67L, Hemoglobin 11.0L, Hematocrit 35.3L, Mean Corpuscular Volume 96.2H, Mean Corpuscular Hemoglobin 30.0, Mean Corpuscular Hemoglobin Concent 31.2L, Red Cell Distribution Width 14.6H, Platelet Count 239, Neutrophils (%) (Auto) 89.4H, Lymphocytes (%) (Auto) 6.7L, Monocytes (%) (Auto) 3.6, Eosinophils (%) (Auto) 0.0, Basophils (%) (Auto) 0.0, Neutrophils # (Auto) 8.5H, Lymphocytes # (Auto) 0.6L, Monocytes # (Auto) 0.3, Eosinophils # (Auto) 0.0, Basophils # (Auto) 0.0, Nucleated Red Blood Cells % (auto) 0.0, Anion Gap 3L, Glomerular Filtration Rate 52.8, Blood Urea Nitrogen 29H, Creatinine 1.07, Sodium Level 142, Potassium Level 3.8, Chloride Level 95L, Carbon Dioxide Level 44H, Calcium Level 8.9, Phosphorus Level 2.7, Magnesium Level 2.5H 02/18/19 05:11: Blood Gas Bicarbonate Standard 39.4H, Arterial Blood pH 7.446, Arterial Blood Partial Pressure CO2 62.8*H, Arterial Blood Partial Pressure O2 67.5L, Arterial Blood Total CO2 44.2H, Arterial Blood HCO3 42.3H, Arterial Blood Base Excess 15.6H, Arterial Blood Oxygen Saturation 92.9L 02/18/19 07:31: Lactic Acid Level 0.6, Ammonia 13, C-Reactive Protein, Quantitative 1.04H CBC/BMP Laboratory Tests 02/18/19 04:39 Red Blood Count 3.67 L, Mean Corpuscular Volume 96.2 H, Mean Corpuscular Hemoglobin 30.0, Mean Corpuscular Hemoglobin Concent 31.2 L, Red Cell Distribution Width 14.6 H, Neutrophils (%) (Auto) 89.4 H, Lymphocytes (%) (Auto) 6.7 L, Monocytes (%) (Auto) 3.6, Eosinophils (%) (Auto) 0.0, Basophils (%) (Auto) 0.0, Neutrophils # (Auto) 8.5 H, Lymphocytes # (Auto) 0.6 L, Monocytes # (Auto) 0.3, Eosinophils # (Auto) 0.0, Basophils # (Auto) 0.0, Calcium Level 8.9 SAL DALAL MD Feb 18, 2019 13:16
[2019-02-18] MEDS: **NOTE PATIENT COMMENT** MISC XX SCH (21:00)
[2019-02-18] MEDS: methylPREDNISolone INJ 40 MG/1 ML VIAL (J2920) IV SCH (21:23)
[2019-02-18] MEDS: ATORVASTATIN 20 MG TAB PO SCH (21:23)
--- NOTE | 2019-02-18 23:16 | ECHO ---
DATE OF PROCEDURE: 02/18/2019 REFERRING PHYSICIAN: Bimal Gould MD PATIENT LOCATION: Room 3201 REASON FOR ECHOCARDIOGRAM: Heart failure, unspecified. 2D MEASUREMENTS: IVS: 1.2 cm LV: 4.5 cm LVPW: 1.1 cm LA: 4.2 cm Aorta: 3.1 cm IVC: 2.6 cm DOPPLER MEASUREMENTS: Peak velocity across the aortic valve: 2.1 m/s Peak velocity across the LVOT: 1.5 m/s Peak gradient across the aortic valve: 18 mmHg Mean gradient across the aortic valve: 8 mmHg Mitral E: 1.0, Mitral A: 1.4, with a ratio of 0.8 2D COMMENTS: 1. Normal left ventricular size, wall thickness and normal global left ventricular systolic function. The estimated global left ventricular systolic ejection fraction is 60 to 65%. 2. Mildly enlarged left atrium. Normal right atrium and right ventricle. 3. The atrial septum appeared to be normal without evidence of defect or shunt. 4. Normal aortic root. 5. Trace pericardial effusion noted, no evidence of cardiac tamponade. 6. Mildly calcified aortic valve with minimal leaflet restriction. Mildly calcified mitral annulus with normal anterior mitral valve leaflet motion. Normal tricuspid valve and pulmonic valve. The proximal pulmonary artery branches were not well visualized. 7. The inferior vena cava was mildly enlarged, central venous pressure might be elevated. DOPPLER: It detects trace aortic regurgitation, trace mitral regurgitation, and trace tricuspid regurgitation. Abnormal relaxation pattern was noted across the mitral valve leaflets as well as mitral valve annulus consistent with features of grade 1 left ventricular diastolic dysfunction. IMPRESSION: 1. Normal global left ventricular systolic function. There are some features of left ventricular diastolic dysfunction manifested by impaired relaxation. 2. Aortic valve sclerosis with trace aortic regurgitation and mild aortic stenosis. 3. Mitral annulus calcification with trace mitral regurgitation and a mildly enlarged left atrium. 4. Trace pericardial effusion noted. No evidence of cardiac tamponade. 5. Trace tricuspid regurgitation.
[2019-02-19] VITALS (12 sets, daily range): BP systolic 132–154; BP diastolic 60–76; O2SAT 95
[2019-02-19 05:55] LABS: HEMATOCRIT 36.9 % (36.0-47.0); HEMOGLOBIN 10.9 g/dl (12.0-15.5); MEAN CORPUSCULAR HEMOGLOBIN 29.3 pg (27.0-33.0); MEAN CORPUSCULAR HGB CONC 29.5 g/dl (32.0-36.5); MEAN CORPUSCULAR VOLUME 99.2 fl (80.0-96.0); PLATELET COUNT, AUTOMATED 258 10^3/uL (150-450); RED BLOOD COUNT 3.72 10^6/uL (4.00-5.40); WHITE BLOOD COUNT 10.3 10^3/uL (4.0-10.0)
[2019-02-19 06:52] LABS: BLOOD UREA NITROGEN 37 MG/DL (7-18); CALCIUM LEVEL 8.6 MG/DL (8.8-10.2); CARBON DIOXIDE LEVEL 45 MEQ/L (21-32); CHLORIDE LEVEL 95 MEQ/L (98-107); CREATININE FOR GFR 0.95 MG/DL (0.55-1.30); GLOMERULAR FILTRATION RATE > 60.0 (>39); GLUCOSE, FASTING 169 MG/DL (70-100); MAGNESIUM LEVEL 2.5 MG/DL (1.8-2.4); POTASSIUM SERUM 4.1 MEQ/L (3.5-5.1); SODIUM LEVEL 142 MEQ/L (136-145)
[2019-02-19] MEDS: IPRATROPIUM 0.5MG/ALBUTEROL 2.5MG INH SOL UD 3ML (DUONEB)(J7620) NEB SCH ×4 (07:39→20:20)
[2019-02-19] MEDS: BUDESONIDE 0.5 MG/2 ML INHALATION SUSPENSION INH SCH (07:39)
[2019-02-19] MEDS: TIOTROPIUM INHALER/CAPSULE (SPIRIVA) INH SCH (08:00)
[2019-02-19] MEDS: methylPREDNISolone INJ 40 MG/1 ML VIAL (J2920) IV SCH ×2 (08:06→20:14)
[2019-02-19] MEDS: LISINOPRIL 10 MG TAB PO SCH (08:06)
[2019-02-19] MEDS: FERROUS SULFATE 325MG TAB PO SCH (08:06)
[2019-02-19] MEDS: ASPIRIN 81 MG ENTERIC TAB PO SCH (08:06)
[2019-02-19] MEDS: PANTOPRAZOLE 40MG TAB (PROTONIX) PO SCH (08:06)
[2019-02-19] MEDS: POTASSIUM CHLORIDE 10 MEQ SR TABLET PO SCH (08:06)
[2019-02-19] MEDS: ENOXAPARIN 40 MG/0.4 ML SYRINGE (J1650) SC SCH (08:07)
[2019-02-19] MEDS: FUROSEMIDE 40 MG/4 ML VIAL (J1940) IV SCH (08:07)
[2019-02-19] MEDS: LIDOCAINE 5% (LIDODERM) PATCH TD SCH (08:08)
--- NOTE | 2019-02-19 13:05 | IPNPDOC ---
Date Seen The patient was seen on 02/19/19. Progress Note SUBJECTIVE: Patient is oriented to person but not place or situation she denies any complaints at this time she denies shortness of breath OBJECTIVE PHYSICAL EXAMINATION: VITAL SIGNS: Please see below. GENERAL: Frail elderly woman lying in bed wearing a face mask she does not appear to be in any acute distress she is awake and conversant provides appropriate responses follows commands HEENT: Cranial nerves II through XII are grossly intact difficult to assess for any elevation CVP secondary to body habitus CARDIOVASCULAR: S1-S2 she is tachycardic at time of my exam. RESPIRATORY: Scattered bibasilar Rales prolonged expiratory phase otherwise fairly good air movement. ABDOMINAL: Obese bowel sounds present abdomen soft and nontender EXTREMITIES: Trace edema bilaterally LABORATORY DATA, IMAGING STUDIES, MICROBIOLOGY: Please see below. Echocardiogram:1. Normal global left ventricular systolic function. There are some features of left ventricular diastolic dysfunction manifested by impaired relaxation. 2. Aortic valve sclerosis with trace aortic regurgitation and mild aortic stenosis. 3. Mitral annulus calcification with trace mitral regurgitation and a mildly enlarged left atrium. 4. Trace pericardial effusion noted. No evidence of cardiac tamponade. 5. Trace tricuspid regurgitation. DVT prophylaxis ordered?: Lovenox ASSESSMENT AND PLAN: This is a 78-year-old female with acute on chronic combined hypercarbic hypoxic respiratory failure. PROBLEMS: 1. Acute on chronic combined hypercarbic hypoxic respiratory failure: [place] to be related to decompensation of congestive heart failure as well as an element of COPD exacerbation. She continues to be net negative daily with her IV diuresis I suspect this will continue to improve her respiratory status we can wean her O2 as tolerated her echocardiogram was suggestive of diastolic dysfunction as well as a dilated IVC confirm my suspicions of decompensated diastolic congestive heart failure. Pulmonary help is greatly appreciated continue to wean back her steroids her baseline is quite poor. At this time she is continued on Symbicort and Spiriva 2. Acute on chronic diastolic congestive heart failure: As outlined above on her I's and O's daily weights continue with diuresis she does appear to be approaching euvolemia but is certainly not.. 3. End-stage COPD: Management as above 4. Back spasms: Does appear doing well with the Lidoderm patch will hold off any muscle relaxants for the time being 5. Hypertension: As outlined above continue with diltiazem and lisinopril 6. Chronic kidney disease: Stable monitor while undergoing diuresis DISPOSITION: Prognosis guarded VS, I&O, 24H, Fishbone Vital Signs/I&O Vital Signs Date Time Temp Pulse Resp B/P (MAP) Pulse Ox O2 Delivery O2 Flow Rate FiO2 02/19/19 08:07 150/76 02/19/19 08:00 98.3 84 22 94 4.0 02/19/19 06:00 40 02/18/19 19:37 Aerosol Mask I&O- Last 24 Hours up to 6 AM 02/19/19 06:00 Intake Total 690 ml Output Total 1675 ml Balance -985 ml Laboratory Data 24H LABS Laboratory Tests 2 02/19/19 05:44: Nucleated Red Blood Cells % (auto) 0.0, Anion Gap 2L, Glomerular Filtration Rate > 60.0, Blood Urea Nitrogen 37H, Creatinine 0.95, Sodium Level 142, Potassium Level 4.1, Chloride Level 95L, Carbon Dioxide Level 45H, Calcium Level 8.6L, Ma gnesium Level 2.5H CBC/BMP Laboratory Tests 02/19/19 05:44 Red Blood Count 3.72 L, Mean Corpuscular Volume 99.2 H, Mean Corpuscular Hemoglobin 29.3, Mean Corpuscular Hemoglobin Concent 29.5 L, Red Cell Distribution Width 14.7 H, Calcium Level 8.6 L SAL DALAL MD Feb 19, 2019 13:05
[2019-02-19] MEDS: ATORVASTATIN 20 MG TAB PO SCH (20:14)
[2019-02-19] MEDS: **NOTE PATIENT COMMENT** MISC XX SCH (20:26)
[2019-02-19] MEDS: SYMBICORT 160/4.5MCG INHALER 6GM INH SCH (21:00)
[2019-02-20] VITALS: BP 131/60
[2019-02-20 04:00] VITALS: BP 133/63
[2019-02-20 05:14] LABS: HEMATOCRIT 37.8 % (36.0-47.0); HEMOGLOBIN 11.1 g/dl (12.0-15.5); MEAN CORPUSCULAR HEMOGLOBIN 29.3 pg (27.0-33.0); MEAN CORPUSCULAR HGB CONC 29.4 g/dl (32.0-36.5); MEAN CORPUSCULAR VOLUME 99.7 fl (80.0-96.0); PLATELET COUNT, AUTOMATED 261 10^3/uL (150-450); RED BLOOD COUNT 3.79 10^6/uL (4.00-5.40); WHITE BLOOD COUNT 10.3 10^3/uL (4.0-10.0)
[2019-02-20 08:00] VITALS: BP 138/67
[2019-02-20] MEDS: IPRATROPIUM 0.5MG/ALBUTEROL 2.5MG INH SOL UD 3ML (DUONEB)(J7620) NEB SCH ×4 (08:00→20:00)
[2019-02-20 08:04] LABS: BLOOD UREA NITROGEN 40 MG/DL (7-18); CALCIUM LEVEL 8.4 MG/DL (8.8-10.2); CHLORIDE LEVEL 97 MEQ/L (98-107); CREATININE FOR GFR 0.95 MG/DL (0.55-1.30); GLOMERULAR FILTRATION RATE > 60.0 (>39); GLUCOSE, FASTING 174 MG/DL (70-100); POTASSIUM SERUM 4.1 MEQ/L (3.5-5.1); SODIUM LEVEL 144 MEQ/L (136-145)
[2019-02-20] MEDS: SYMBICORT 160/4.5MCG INHALER 6GM INH SCH ×2 (08:23→20:46)
[2019-02-20] MEDS: TIOTROPIUM INHALER/CAPSULE (SPIRIVA) INH SCH (08:23)
[2019-02-20] MEDS: ENOXAPARIN 40 MG/0.4 ML SYRINGE (J1650) SC SCH (08:32)
[2019-02-20] MEDS: methylPREDNISolone INJ 40 MG/1 ML VIAL (J2920) IV SCH ×2 (08:32→20:46)
[2019-02-20] MEDS: LIDOCAINE 5% (LIDODERM) PATCH TD SCH (08:32)
[2019-02-20] MEDS: FUROSEMIDE 40 MG/4 ML VIAL (J1940) IV SCH (08:33)
[2019-02-20] MEDS: POTASSIUM CHLORIDE 10 MEQ SR TABLET PO SCH (08:33)
[2019-02-20] MEDS: LISINOPRIL 10 MG TAB PO SCH (08:33)
[2019-02-20] MEDS: FERROUS SULFATE 325MG TAB PO SCH (08:34)
[2019-02-20] MEDS: ASPIRIN 81 MG ENTERIC TAB PO SCH (08:34)
[2019-02-20] MEDS: PANTOPRAZOLE 40MG TAB (PROTONIX) PO SCH (08:34)
[2019-02-20 09:03] LABS: CARBON DIOXIDE LEVEL 49 MEQ/L (21-32)
[2019-02-20 12:40] VITALS: BP 160/80
[2019-02-20 14:00] VITALS: BP 148/70
--- NOTE | 2019-02-20 14:58 | IPNPDOC ---
Date Seen The patient was seen on 02/20/19. Progress Note SUBJECTIVE: Patient is oriented to person place and to situation this AM she denies any complaints at this time. OBJECTIVE PHYSICAL EXAMINATION: VITAL SIGNS: Please see below. GENERAL: Frail elderly woman lying in bed wearing nasal cannula she does not appear to be in any acute distress she is accompanied by her daughter HEENT: Cranial nerves II through XII are grossly intact difficult to assess for any elevation CVP secondary to body habitus CARDIOVASCULAR: S1-S2 RESPIRATORY: Scattered bibasilar Rales prolonged expiratory phase otherwise good air movement. ABDOMINAL: Obese bowel sounds present abdomen soft and nontender EXTREMITIES: Trace edema bilaterally LABORATORY DATA, IMAGING STUDIES, MICROBIOLOGY: Please see below. Echocardiogram:1. Normal global left ventricular systolic function. There are some features of left ventricular diastolic dysfunction manifested by impaired relaxation. 2. Aortic valve sclerosis with trace aortic regurgitation and mild aortic stenosis. 3. Mitral annulus calcification with trace mitral regurgitation and a mildly enlarged left atrium. 4. Trace pericardial effusion noted. No evidence of cardiac tamponade. 5. Trace tricuspid regurgitation. DVT prophylaxis ordered?: Lovenox ASSESSMENT AND PLAN: This is a 78-year-old female with acute on chronic hypoxic respiratory failure. PROBLEMS: 1. Acute on chronic hypoxic respiratory failure: [place] to be related to decompensation of congestive heart failure as well as an element of COPD exacerbation. She continues to be net negative daily with her IV diuresis I suspect this will continue to improve her respiratory status we can wean her O2 as tolerated her echocardiogram was suggestive of diastolic dysfunction as well as a dilated IVC confirm my suspicions of decompensated diastolic congestive heart failure. Pulmonary help is greatly appreciated continue to wean back her steroids her baseline is quite poor. At this time she is continued on Symbicort and Spiriva will transition out of the medical intensive care unit 2. Acute on chronic diastolic congestive heart failure: As outlined above on her I's and O's daily weights continue with diuresis she does appear to be approaching euvolemia but is certainly not. There yet. 3. End-stage COPD: Management as above 4. Back spasms: Does appear doing well with the Lidoderm patch will hold off any muscle relaxants for the time being 5. Hypertension: As outlined above continue with diltiazem and lisinopril 6. Chronic kidney disease: Stable monitor while undergoing diuresis DISPOSITION: Transfer the medical surgical floor pending PT VS, I&O, 24H, Fishbone Vital Signs/I&O Vital Signs Date Time Temp Pulse Resp B/P (MAP) Pulse Ox O2 Delivery O2 Flow Rate FiO2 02/20/19 14:00 97.3 88 20 148/70 (96) 92 4.0 02/19/19 20:21 Nasal Cannula 02/19/19 06:00 40 I&O- Last 24 Hours up to 6 AM 02/20/19 06:00 Intake Total 930 ml Output Total 1125 ml Balance -195 ml Laboratory Data 24H LABS Laboratory Tests 2 02/20/19 04:42: Nucleated Red Blood Cells % (auto) 0.0, Anion Gap , Glomerular Filtration Rate > 60.0, Blood Urea Nitrogen 40H, Creatinine 0.95, Sodium Level 144, Potassium Level 4.1, Chloride Level 97L, Carbon Dioxide Level 49H, Calcium Level 8.4L CBC/BMP Laboratory Tests 02/20/19 04:42 Red Blood Count 3.79 L, Mean Corpuscular Volume 99.7 H, Mean Corpuscular Hemoglobin 29.3, Mean Corpuscular Hemoglobin Concent 29.4 L, Red Cell Distribution Width 14.3, Calcium Level 8.4 L SAL DALAL MD Feb 20, 2019 14:58
[2019-02-20] MEDS: ACETAMINOPHEN 650MG ER TAB (TYLENOL ARTHRITIS) PO PRN (16:38)
[2019-02-20] MEDS: ATORVASTATIN 20 MG TAB PO SCH (20:46)
[2019-02-20] MEDS: **NOTE PATIENT COMMENT** MISC XX SCH (20:48)
[2019-02-20 22:00] VITALS: BP 139/73
[2019-02-21 05:58] VITALS: O2SAT 97
[2019-02-21 06:00] VITALS: BP 155/81
[2019-02-21 06:31] LABS: HEMATOCRIT 39.4 % (36.0-47.0); HEMOGLOBIN 11.3 g/dl (12.0-15.5); MEAN CORPUSCULAR HEMOGLOBIN 28.8 pg (27.0-33.0); MEAN CORPUSCULAR HGB CONC 28.7 g/dl (32.0-36.5); MEAN CORPUSCULAR VOLUME 100.5 fl (80.0-96.0); PLATELET COUNT, AUTOMATED 280 10^3/uL (150-450); RED BLOOD COUNT 3.92 10^6/uL (4.00-5.40); WHITE BLOOD COUNT 8.8 10^3/uL (4.0-10.0)
[2019-02-21 07:23] LABS: BLOOD UREA NITROGEN 47 MG/DL (7-18); CALCIUM LEVEL 8.8 MG/DL (8.8-10.2); CARBON DIOXIDE LEVEL 50 MEQ/L (21-32); CHLORIDE LEVEL 94 MEQ/L (98-107); GLOMERULAR FILTRATION RATE 57.1 (>39); GLUCOSE, FASTING 186 MG/DL (70-100); POTASSIUM SERUM 4.4 MEQ/L (3.5-5.1); SODIUM LEVEL 143 MEQ/L (136-145)
[2019-02-21] MEDS: TIOTROPIUM INHALER/CAPSULE (SPIRIVA) INH SCH (07:50)
[2019-02-21] MEDS: SYMBICORT 160/4.5MCG INHALER 6GM INH SCH ×2 (07:50→19:33)
[2019-02-21] MEDS: IPRATROPIUM 0.5MG/ALBUTEROL 2.5MG INH SOL UD 3ML (DUONEB)(J7620) NEB SCH ×4 (07:52→19:32)
[2019-02-21] MEDS: methylPREDNISolone INJ 40 MG/1 ML VIAL (J2920) IV SCH (08:48)
[2019-02-21] MEDS: FUROSEMIDE 40 MG/4 ML VIAL (J1940) IV SCH (08:49)
[2019-02-21] MEDS: ENOXAPARIN 40 MG/0.4 ML SYRINGE (J1650) SC SCH (08:50)
[2019-02-21] MEDS: FERROUS SULFATE 325MG TAB PO SCH (08:50)
[2019-02-21] MEDS: POTASSIUM CHLORIDE 10 MEQ SR TABLET PO SCH (08:53)
[2019-02-21] MEDS: ASPIRIN 81 MG ENTERIC TAB PO SCH (08:53)
[2019-02-21] MEDS: PANTOPRAZOLE 40MG TAB (PROTONIX) PO SCH (08:54)
[2019-02-21] MEDS: LIDOCAINE 5% (LIDODERM) PATCH TD SCH (08:54)
[2019-02-21] MEDS: LISINOPRIL 10 MG TAB PO SCH (08:54)
[2019-02-21 14:00] VITALS: BP 155/73
--- NOTE | 2019-02-21 15:28 | IPNPDOC ---
Date Seen The patient was seen on 02/21/19. Progress Note SUBJECTIVE: Patient is awake alert oriented 3 she denies any complaints at this time but tells me that she is getting better OBJECTIVE PHYSICAL EXAMINATION: VITAL SIGNS: Please see below. GENERAL: Frail elderly woman sitting up in bed wearing nasal cannula she does not appear to be in any acute distress HEENT: Cranial nerves II through XII are grossly intact difficult to assess for any elevation CVP secondary to body habitus CARDIOVASCULAR: S1-S2 regular not tachycardic RESPIRATORY: Clear to auscultation bilaterally ABDOMINAL: Obese bowel sounds present abdomen soft and nontender EXTREMITIES: No edema bilaterally LABORATORY DATA, IMAGING STUDIES, MICROBIOLOGY: Please see below. Echocardiogram:1. Normal global left ventricular systolic function. There are some features of left ventricular diastolic dysfunction manifested by impaired relaxation. 2. Aortic valve sclerosis with trace aortic regurgitation and mild aortic stenosis. 3. Mitral annulus calcification with trace mitral regurgitation and a mildly enlarged left atrium. 4. Trace pericardial effusion noted. No evidence of cardiac tamponade. 5. Trace tricuspid regurgitation. DVT prophylaxis ordered?: Lovenox ASSESSMENT AND PLAN: This is a 78-year-old female with acute on chronic hypoxic respiratory failure. PROBLEMS: 1. Acute on chronic hypoxic respiratory failure: [place] to be related to decompensation of congestive heart failure as well as an element of COPD exacerbation. She continues to be net negative daily with her IV diuresis at this time I'll transition her back to her home by mouth dose of diuretic as her respiratory status is at its baseline. I'll wean her steroids prednisone by mouth daily At this time she is continued on Symbicort and Spiriva she is doing well at this time 2. Acute on chronic diastolic congestive heart failure: As outlined above on her I's and O's daily weights continue with diuresis as above she does appear to be approaching euvolemia 3. End-stage COPD: Management as above 4. Back spasms: Does appear doing well with the Lidoderm patch will hold off any muscle relaxants for the time being 5. Hypertension: As outlined above continue with diltiazem and lisinopril 6. Chronic kidney disease: Stable monitor while undergoing diuresis DISPOSITION: pending PT VS, I&O, 24H, Fishbone Vital Signs/I&O Vital Signs Date Time Temp Pulse Resp B/P (MAP) Pulse Ox O2 Delivery O2 Flow Rate FiO2 02/21/19 09:00 4.0 02/21/19 08:53 89 148/70 02/21/19 06:00 97.1 18 93 02/21/19 05:58 Nasal Cannula 02/19/19 06:00 40 I&O- Last 24 Hours up to 6 AM 02/21/19 06:00 Intake Total 900 ml Output Total 750 ml Balance 150 ml Laboratory Data 24H LABS Laboratory Tests 2 02/21/19 05:53: Nucleated Red Blood Cells % (auto) 0.0, Anion Gap , Glomerular Filtration Rate 57.1, Blood Urea Nitrogen 47H, Creatinine 1.00, Sodium Level 143, Potassium Level 4.4, Chloride Level 94L, Carbon Dioxide Level 50H, Calcium Level 8.8 CBC/BMP Laboratory Tests 02/21/19 05:53 Red Blood Count 3.92 L, Mean Corpuscular Volume 100.5 H, Mean Corpuscular Hemoglobin 28.8, Mean Corpuscular Hemoglobin Concent 28.7 L, Red Cell Distribution Width 14.3, Calcium Level 8.8 SAL DALAL MD Feb 21, 2019 15:28
[2019-02-21] MEDS: ACETAMINOPHEN 650MG ER TAB (TYLENOL ARTHRITIS) PO PRN (15:54)
[2019-02-21] MEDS: ATORVASTATIN 20 MG TAB PO SCH (19:40)
[2019-02-21] MEDS: **NOTE PATIENT COMMENT** MISC XX SCH (19:41)
[2019-02-21 22:00] VITALS: BP 152/84
[2019-02-21 23:07] VITALS: O2SAT 92
[2019-02-22 02:00] VITALS: BP 147/73
[2019-02-22 06:00] VITALS: BP 142/77
[2019-02-22 06:19] LABS: HEMATOCRIT 38.8 % (36.0-47.0); HEMOGLOBIN 11.5 g/dl (12.0-15.5); MEAN CORPUSCULAR HEMOGLOBIN 29.7 pg (27.0-33.0); MEAN CORPUSCULAR HGB CONC 29.6 g/dl (32.0-36.5); MEAN CORPUSCULAR VOLUME 100.3 fl (80.0-96.0); PLATELET COUNT, AUTOMATED 306 10^3/uL (150-450); RED BLOOD COUNT 3.87 10^6/uL (4.00-5.40); WHITE BLOOD COUNT 9.1 10^3/uL (4.0-10.0)
[2019-02-22] MEDS: TIOTROPIUM INHALER/CAPSULE (SPIRIVA) INH SCH (07:33)
[2019-02-22] MEDS: SYMBICORT 160/4.5MCG INHALER 6GM INH SCH ×2 (07:34→19:32)
[2019-02-22] MEDS: IPRATROPIUM 0.5MG/ALBUTEROL 2.5MG INH SOL UD 3ML (DUONEB)(J7620) NEB SCH ×4 (08:00→19:31)
[2019-02-22] MEDS: PANTOPRAZOLE 40MG TAB (PROTONIX) PO SCH (08:21)
[2019-02-22] MEDS: FUROSEMIDE 20 MG TAB PO SCH (08:21)
[2019-02-22] MEDS: LISINOPRIL 10 MG TAB PO SCH (08:21)
[2019-02-22] MEDS: POTASSIUM CHLORIDE 10 MEQ SR TABLET PO SCH (08:22)
[2019-02-22] MEDS: FERROUS SULFATE 325MG TAB PO SCH (08:22)
[2019-02-22] MEDS: predniSONE 20 MG TAB PO SCH (08:22)
[2019-02-22] MEDS: ASPIRIN 81 MG ENTERIC TAB PO SCH (08:22)
[2019-02-22 08:23] LABS: BLOOD UREA NITROGEN 51 MG/DL (7-18); CALCIUM LEVEL 8.6 MG/DL (8.8-10.2); CARBON DIOXIDE LEVEL 49 MEQ/L (21-32); CHLORIDE LEVEL 94 MEQ/L (98-107); CREATININE FOR GFR 1.01 MG/DL (0.55-1.30); GLOMERULAR FILTRATION RATE 56.4 (>39); GLUCOSE, FASTING 102 MG/DL (70-100); POTASSIUM SERUM 3.7 MEQ/L (3.5-5.1); SODIUM LEVEL 142 MEQ/L (136-145)
[2019-02-22] MEDS: ENOXAPARIN 40 MG/0.4 ML SYRINGE (J1650) SC SCH (08:23)
[2019-02-22] MEDS: LIDOCAINE 5% (LIDODERM) PATCH TD SCH (08:23)
[2019-02-22 14:00] VITALS: BP 121/65
--- NOTE | 2019-02-22 15:06 | IPNPDOC ---
Date Seen The patient was seen on 02/22/19. Progress Note SUBJECTIVE: Patient is awake alert oriented 3 she denies any complaints she is eager to go home OBJECTIVE PHYSICAL EXAMINATION: VITAL SIGNS: Please see below. GENERAL: Frail elderly woman sitting up in chair wearing nasal cannula she is accompanied by her daughter LAUREL: Cranial nerves II through XII are grossly intact CARDIOVASCULAR: S1-S2 regular RESPIRATORY: Clear to auscultation bilaterally ABDOMINAL: Obese bowel sounds present abdomen soft and nontender EXTREMITIES: No edema bilaterally LABORATORY DATA, IMAGING STUDIES, MICROBIOLOGY: Please see below. Echocardiogram:1. Normal global left ventricular systolic function. There are some features of left ventricular diastolic dysfunction manifested by impaired relaxation. 2. Aortic valve sclerosis with trace aortic regurgitation and mild aortic stenosis. 3. Mitral annulus calcification with trace mitral regurgitation and a mildly enlarged left atrium. 4. Trace pericardial effusion noted. No evidence of cardiac tamponade. 5. Trace tricuspid regurgitation. DVT prophylaxis ordered?: Lovenox ASSESSMENT AND PLAN: This is a 78-year-old female with acute on chronic hypoxic respiratory failure. PROBLEMS: 1. Acute on chronic hypoxic respiratory failure: Secondary to decompensation of congestive heart failure as well as an element of COPD exacerbation. She has been transitioned back to her home daily diuretic dosing and her steroids have been tapered she's continued on Symbicort and Spiriva she's doing quite well and I believe approaching her baseline we will get her up and ambulate her and have her out of bed for meals today. 2. Acute on chronic diastolic congestive heart failure: As outlined above on her I's and O's daily weights continue with diuresis as above she does appear to be euvolemic 3. End-stage COPD: She is at her baseline respiratory status she is on a steroid taper she's continued on Spiriva and Symbicort as outlined above 4. Back spasms: Does appear doing well with the Lidoderm patch will hold off any muscle relaxants moving forward 5. Hypertension: As outlined above continue with diltiazem and lisinopril 6. Chronic kidney disease: Stable she tolerated diuresis nicely DISPOSITION: pending PT VS, I&O, 24H, Fishbone Vital Signs/I&O Vital Signs Date Time Temp Pulse Resp B/P (MAP) Pulse Ox O2 Delivery O2 Flow Rate FiO2 02/22/19 08:22 103 142/77 02/22/19 06:00 98.6 19 97 4.0 02/21/19 23:07 Nasal Cannula 02/19/19 06:00 40 I&O- Last 24 Hours up to 6 AM 02/22/19 05:59 Intake Total 2340 ml Output Total 1050 ml Balance 1290 ml Laboratory Data 24H LABS Laboratory Tests 2 02/22/19 06:00: Nucleated Red Blood Cells % (auto) 0.0, Anion Gap , Glomerular Filtration Rate 56.4, Blood Urea Nitrogen 51H, Creatinine 1.01, Sodium Level 142, Potassium Level 3.7, Chloride Level 94L, Carbon Dioxide Level 49H, Calcium Level 8.6L CBC/BMP Laboratory Tests 02/22/19 06:00 Red Blood Count 3.87 L, Mean Corpuscular Volume 100.3 H, Mean Corpuscular Hemoglobin 29.7, Mean Corpuscular Hemoglobin Concent 29.6 L, Red Cell Distribution Width 14.3, Calcium Level 8.6 L SAL DALAL MD Feb 22, 2019 15:06
[2019-02-22] MEDS: **NOTE PATIENT COMMENT** MISC XX SCH (20:22)
[2019-02-22] MEDS: ATORVASTATIN 20 MG TAB PO SCH (20:22)
[2019-02-22 22:00] VITALS: BP 169/72
[2019-02-23 06:00] VITALS: BP 122/61
[2019-02-23 06:39] LABS: HEMATOCRIT 38.5 % (36.0-47.0); HEMOGLOBIN 11.5 g/dl (12.0-15.5); MEAN CORPUSCULAR HEMOGLOBIN 29.5 pg (27.0-33.0); MEAN CORPUSCULAR HGB CONC 29.9 g/dl (32.0-36.5); MEAN CORPUSCULAR VOLUME 98.7 fl (80.0-96.0); PLATELET COUNT, AUTOMATED 339 10^3/uL (150-450); WHITE BLOOD COUNT 10.3 10^3/uL (4.0-10.0)
[2019-02-23 07:15] LABS: CALCIUM LEVEL 8.2 MG/DL (8.8-10.2); GLOMERULAR FILTRATION RATE 57.1 (>39); POTASSIUM SERUM 3.9 MEQ/L (3.5-5.1)
[2019-02-23] MEDS: IPRATROPIUM 0.5MG/ALBUTEROL 2.5MG INH SOL UD 3ML (DUONEB)(J7620) NEB SCH (08:00)
[2019-02-23] MEDS: TIOTROPIUM INHALER/CAPSULE (SPIRIVA) INH SCH (08:43)
[2019-02-23] MEDS: SYMBICORT 160/4.5MCG INHALER 6GM INH SCH (08:44)
[2019-02-23] MEDS: ASPIRIN 81 MG ENTERIC TAB PO SCH (08:45)
[2019-02-23 08:46] VITALS: BP 132/79
[2019-02-23] MEDS: POTASSIUM CHLORIDE 10 MEQ SR TABLET PO SCH (08:46)
[2019-02-23] MEDS: predniSONE 20 MG TAB PO SCH (08:46)
[2019-02-23] MEDS: LISINOPRIL 10 MG TAB PO SCH (08:46)
[2019-02-23] MEDS: PANTOPRAZOLE 40MG TAB (PROTONIX) PO SCH (08:46)
[2019-02-23] MEDS: FERROUS SULFATE 325MG TAB PO SCH (08:46)
[2019-02-23] MEDS: ENOXAPARIN 40 MG/0.4 ML SYRINGE (J1650) SC SCH (08:47)
[2019-02-23] MEDS: LIDOCAINE 5% (LIDODERM) PATCH TD SCH (08:47)
[2019-02-23] MEDS: FUROSEMIDE 20 MG TAB PO SCH (08:47)
[2019-02-23 09:00] VITALS: O2SAT 92
[2019-02-23] MEDS ORDERED: LIDO5TD TD (10:16)
[2019-02-23] MEDS ORDERED: PRED10TA2 PO (10:16)
== END 2019-02-23 13:10 | disposition home health service (06) | DRG 291 ==
LOC: M ED 15:12 → M ED INP 17:48 → M ICU 22:13 → M MSPAV 02-17 11:07 → M ICU 02-17 16:25 → M MSPAV 02-20 12:36
PROVIDERS: ADMIT Internal Medicine; ATTEND Internal Medicine Nephrology
DX: I13.0 Hypertensive heart and chronic kidney disease with heart failure and stage 1 through stage 4 chronic kidney disease, or unspecified chronic kidney disease (principal); I50.33 Acute on chronic diastolic (congestive) heart failure; J96.21 Acute and chronic respiratory failure with hypoxia; J96.22 Acute and chronic respiratory failure with hypercapnia; J44.1 Chronic obstructive pulmonary disease with (acute) exacerbation; M81.0 Age-related osteoporosis without current pathological fracture; F32.9 Major depressive disorder, single episode, unspecified; N18.3 Chronic kidney disease, stage 3 (moderate); M62.830 Muscle spasm of back; H40.9 Unspecified glaucoma; E55.9 Vitamin D deficiency, unspecified; E66.9 Obesity, unspecified; E78.00 Pure hypercholesterolemia, unspecified; Z98.42 Cataract extraction status, left eye; Z87.891 Personal history of nicotine dependence; Z99.81 Dependence on supplemental oxygen; Z79.82 Long term (current) use of aspirin; Z79.899 Other long term (current) drug therapy